=== PATIENT | female | born 1975 | race Caucasian/White ===

== ENCOUNTER 2018-11-14 03:49 | Emergency (ER) | payer BC ==
[2018-11-14] MEDS ORDERED: diphenhydrAMINE 50 MG/ML SDV IM ONE (04:03)
[2018-11-14] MEDS ORDERED: methylPREDNISolone Sodium Succinate 125 MG/2 ML SDV IM ONE (04:03)
--- NOTE | 2018-11-14 04:08 | EDM.PDOC ---
ED HPI GENERAL MEDICAL PROBLEM - General Chief Complaint: Allergic Reaction Stated Complaint: HAND AND FACE SWELLING Time Seen by Provider: 11/14/18 04:05 Source of Information: Reports: Patient History Limitations: Reports: No Limitations - History of Present Illness INITIAL COMMENTS - FREE TEXT/NARRATIVE: woke up with right lower lip swelling and feeling stomach discomfort, denies SOB /CP, no problem swallowing. Abdominal Pain Score (Numeric/FACES): 3 - Related Data Allergies Allergy/AdvReac Type Severity Reaction Status Date / Time No Known Allergies Allergy Verified 11/14/18 03:55 Home Meds: Home Meds Fexofenadine HCl [Leyla Allergy] 60 mg PO DAILY 11/14/18 [History] Pantoprazole Sodium [Protonix] 2 mg PO DAILY 11/14/18 [History] Past Medical History - Past Health History Medical/Surgical History: Denies Medical/Surgical History HEENT History: Reports: Impaired Vision SKY CAP History: Reports: Social & Family History - Tobacco Use Smoking Status *Q: Never Smoker - Caffeine Use Caffeine Use: Reports: Coffee, Soda - Recreational Drug Use Recreational Drug Use: No ED ROS ALLERGIC REACTION - Review of Systems Review Of Systems: ROS reveals no pertinent complaints other than HPI. ED EXAM GENERAL NO PERIP PULSE - Physical Exam Exam: See Below Exam Limited By: No Limitations General Appearance: Alert, WD/WN, Anxious, Mild Distress Ears: Hearing Grossly Normal Throat/Mouth: Normal Oropharynx, Normal Voice, No Airway Compromise, Other ( mild swelling right lower lip, no drooling, no tongue swelling, ) Head: Atraumatic Neck: Non-Tender, Full Range of Motion Respiratory/Chest: No Respiratory Distress, Lungs Clear, Normal Breath Sounds Cardiovascular: Regular Rate, Rhythm GI/Abdominal: Soft, Non-Tender Neurological: Alert, Oriented, Normal Cognition, Normal Gait, No Motor/Sensory Deficits Psychiatric: Anxious Skin Exam: Warm, Dry, Normal Color Lymphatic: No Adenopathy Course - Vital Signs Last Recorded V/S: Last Vital Signs Temp 36.0 C 11/14/18 03:56 Pulse 86 11/14/18 03:56 Resp 18 11/14/18 03:56 BP 140/92 H 11/14/18 03:56 Pulse Ox 99 11/14/18 03:56 - Orders/Labs/Meds Meds: Medications Discontinued Medications Generic Name Dose Route Start Last Admin Trade Name Freq PRN Reason Stop Dose Admin Diphenhydramine HCl 50 mg 11/14/18 04:03 11/14/18 04:11 Benadryl IM 11/14/18 04:04 50 mg ONETIME ONE Administration Famotidine 20 mg 11/14/18 04:14 11/14/18 04:17 Pepcid PO 11/14/18 04:15 20 mg ONETIME ONE Administration Methylprednisolone Sodium Succinate 125 mg 11/14/18 04:03 11/14/18 04:14 Solu-Medrol IM 11/14/18 04:04 125 mg ONETIME ONE Administration - Re-Assessments/Exams Free Text/Narrative Re-Assessment/Exam: 11/14/18 04:41 re-exam; s/p IM benadryl + solumed = much better Departure - Departure Time of Disposition: 04:41 Disposition: Home, Self-Care 01 Condition: Good Clinical Impression: Allergic reaction Qualifiers: Encounter type: initial encounter Qualified Code(s): T78.40XA - Allergy, unspecified, initial encounter - Discharge Information Instructions: Allergies, Adult, [id number] Forms: ED Department Discharge Additional Instructions: 1) take benadryl 25mg 3 to 4 times daily for itch or swelling 2) recheck if there is any change or concern rx given; medrol dospak
[2018-11-14] MEDS ORDERED: Famotidine 20 MG Tab PO ONE (04:14)
== END 2018-11-14 04:47 | disposition home or self-care (01) ==
LOC: DL.ED 03:49
DX: T78.40XA Allergy, unspecified, initial encounter (principal); Z79.899 Other long term (current) drug therapy
CPT/HCPCS: 96372; 99283; A9270; J1200; J2930